=== PATIENT | male | born 1965 | race Caucasian/White ===

== ENCOUNTER 2024-10-20 22:51 | Emergency (ER) | payer BC, SELFPAY ==
[2024-10-20 22:58] VITALS: BP 164/90
[2024-10-20 23:38] VITALS: BP 149/89
[2024-10-20 23:42] VITALS: BP 158/96
[2024-10-21] VITALS: BP 131/89
[2024-10-21 00:01] VITALS: BMI 28.9
[2024-10-21 00:05] LABS: % Basophils 0.5 % (0-2); % Eosinophils 2.6 % (0-6); % Immature Granulocytes 0.2 % (0-0.5); % Lymphocytes 39.8 % (20.5-51.1); % Monocytes 8.2 % (1.7-9.3); % Neutrophils 48.7 % (42.2-75.2); Absolute Eosinophils 0.2 10^3/uL (0-0.7); Absolute Lymphocytes 2.6 10^3/uL (1.2-3.4); Absolute Monocytes 0.5 10^3/uL (0.1-0.6); Absolute Neutrophils 3.2 10^3/uL (1.4-6.5); Hematocrit 39.7 % (39.0-52.0); Hemoglobin 13.2 g/dL (13.0-18.0); Mean Corp Hgb Conc. 33.2 g/dL (33.0-37.0); Mean Corpuscular Hgb 29.3 pg (27.0-31.0); Mean Platelet Volume 10.4 fL (7.4-10.4); Nucleated Red Blood Cells % 0 % (-); Platelet Count 198 10^3/uL (130-400); Red Blood Cell Count 4.51 10^6/uL (4.70-6.10); Red Cell Dist. Width 12.7 % (11.5-14.5); White Blood Cell Count 6.6 10^3/uL (4.8-10.8)
[2024-10-21 00:13] LABS: INR 0.91; PT 12.8 Sec (11.4-14.6)
[2024-10-21 00:14] LABS: ALT (SGPT) 29 U/L (0-50); AST (SGOT) 36 U/L (17-59); Albumin 4.2 g/dl (3.5-5.0); Alkaline Phosphatase 80 U/L (38-126); Blood Urea Nitrogen 18 mg/dl (9-20); Calcium 9.3 mg/dl (8.4-10.2); Carbon Dioxide 30 mmol/L (22-30); Chloride 101 mmol/L (98-107); Estimated Creatinine Clearance 95 ml/min; Glucose 100 mg/dl (70-99); Sodium 137 mmol/L (135-145); Total Bilirubin 0.3 mg/dl (0.2-1.3); Total Protein 6.3 g/dl (6.3-8.2); eGFR > 60.00
[2024-10-21 00:35] LABS: Troponin I < 0.012 ng/ml
[2024-10-21 01:00] VITALS: BP 125/81
--- NOTE | 2024-10-21 01:01 | ED.GENMED ---
History of Present Illness
General
Chief Complaint: Chest Pain
Source: patient and family
Exam Limitations: none
Time Seen by Provider: 10/20/24 23:32
Nursing documentation reviewed up to this point in time: agreed with
History of Present Illness
History of Present Illness:
This is a pleasant 59-year-old male who presents with substernal chest pain that awakened him from sleep around 10 PM. Patient states that he has been having intermittent chest pain for the last 2 to 3 days. Similar location and severity. Tonight
he became concerned because the chest pain radiated down his left arm. He did report some shortness of breath. He states that when the pain is not present he does have pain between his shoulder blades that lingers. Denies fever, chills, nausea or
vomiting. States that he does not have a cardiac history though he was evaluated by a receiving coordinator years ago after having an episode of chest pain in the emergency department. He does report that his brother of 'an enlarged heart '18 years
ago. His sister also had a cardiac ablation. His mom had an OH. Patient is a non-smoker. He does not take any medications.
Review of Systems
Review of Systems
Allergies reviewed?: Yes
All Other Systems: Not applicable
Constitutional: Reports no symptoms
EENT: Reports no symptoms
Respiratory: Reports no symptoms
Cardiac: Reports chest pain
ABD/GI: Reports no symptoms
: Reports no symptoms
Musculoskeletal: Reports no symptoms
Skin: Reports no symptoms
Neurological: Reports no symptoms
Endocrine: Reports no symptoms
Hematologic/Lymphatic: Reports no symptoms
Psychiatric: Reports no symptoms
Phy Exam
General Physical Exam
General Presentation: well appearing and no apparent distress
General Skin: warm and dry
General Habitus: normal
General Mental: alert
General Hydration: appears well hydrated
ENT Exam
ENT Exam: EOMI, pharynx normal, neck supple and normocephalic
Eye Exam
Eye Exam: PERRL, cornea clear and conjunctiva normal
Cardiovascular Exam
Cardiovascular Exam: regular rate/rhythm, no edema, no murmur and normal peripheral pulses
Pulmonary Exam
Pulmonary Exam: lungs clear, no respiratory distress, no rales, no crackles, no rhonchi, no stridor, no wheezing and no cough
Gastrointestinal Exam
Gastrointestinal Exam: normal bowel sounds, non tender, soft, no organomegaly, no pulsatile mass and non distended
Neurological Exam
Neurological Exam: alert, oriented x3, no motor deficits and speech normal
Musculoskeletal Exam
Musculoskeletal Exam: full ROM and no edema
Skin Exam
Skin Exam: normal color, warm/dry, no rash and no petechia
Psychiatric Exam
Psychiatric Exam: normal mood/affect
Scores
Heart Score for Chest Pain Patients
STEMI patient?: No
History: Slightly or Non-Suspicious
ECG: Normal
Age: >45 - <65 years
Risk Factors: 1 or 2 Risk Factors
Troponin: </= Normal Limit
Heart Score for Chest Pain Patients: 2
Heart Score Risk: 2.5% MACE over next 6 weeks
Course
Orders/Labs/Results
Orders:
Orders
10/20/24 22:51
Electrocardiogram (*1) Urgent
Reason for Study: Chest Pain
10/20/24 22:52
EKG- Treatment ONCE
10/20/24 23:55
Complete Blood Count/With Diff Urgent
Comprehensive Metabolic Panel Urgent
Prothrombin Time Urgent
Troponin I Urgent
10/21/24 00:01
CT Chest Pe Study Urgent
Reason For Exam: cp rad thru shoulders, dyspnea
10/21/24 01:55
Pantoprazole [Protonix] 40 mg PO NOW STA
Abnormal Lab Results
10/20/24
23:55
RBC 4.51 L 10^6/uL
(4.70-6.10)
Glucose 100 H mg/dl
(70-99)
10/20/24 23:55
10/20/24 23:55
Vital Signs
Initial and Last Documented VS:
Initial Vital Signs
Temp Pulse Resp BP Pulse Ox
97.3 F 66 18 164/90 99
10/20/24 22:58 10/20/24 22:58 10/20/24 22:58 10/20/24 22:58 10/20/24 22:58
Last Documented Vital Signs
Temp Pulse Resp BP Pulse Ox
97.3 F 64 16 125/81 95
10/20/24 22:58 10/21/24 01:00 10/21/24 01:00 10/21/24 01:00 10/21/24 01:00
*Critical Care Note
Total Time (30-74mins, 75-104mins- exclusive of procedures): Not Applicable
Update Note
Update Note:
CTA CHEST
IMPRESSION:
1. Adequate technical study. No acute pulmonary embolism.
2. No thoracic aortic aneurysm or acute aortic dissection. Bibasilar atelectasis. Mild esophageal wall thickening, can be correlated with signs or symptoms of esophagitis
Incidentals:
- No acute osseous abnormality.
- No acute abnormality within the visualized abdomen.
- No thoracic lymphadenopathy or suspicious lymph nodes.
Case finalized on Oct 21 2024 1:32AM ET
Cardiac enzyme negative. CT negative. Chest pain has been going on for several days. First troponin negative. Patient to follow-up with family doctor.
ED Attending Note
-
Portions of this chart may have been created with voice recognition software.� Occasional wrong word or��sound alike� substitutions may have occurred due to the inherent limitations of voice recognition software.
Discharge Plan
Departure
Patient Disposition: Home (Routine Discharge)
Date of Disposition: 10/21/24
Time of Disposition: 01:56
Patient with high blood pressure during this ER visit?: Yes
Condition: Good
Discharge Problem:
Chest pain, Esophagitis
Instructions: Acid Reflux and GERD in Adults (DC), Chest Pain PCP Follow Up
Prescriptions:
New
pantoprazole [Protonix] 40 mg tablet,delayed release (DR/EC)
40 mg PO DAILY Qty: 14 0RF
Referrals:
George Stoll MD [Family Provider] -
Activity Restrictions/Additional Instructions:
Your prescriptions were sent electronically to the pharmacy that you specified.
It was a pleasure meeting you and taking part in your care. We hope for your continued healing and wellness.
Please read discharge instructions in their entirety. However, they are for general education and may not describe your exact diagnosis at discharge. Information on your ER visit and medical conditions were discussed with you along with appropriate
follow up information...
If indicated, please take your medications as instructed and indicated on discharge paperwork.
Please schedule a follow up appointment as directed. Call to schedule an appointment
Please return to the emergency department with ANY change in, persisting, or worsening of symptoms. If any of your symptoms do not improve, or persist, or become more severe within 6-12 hours, please return to the emergency department for further
care.
Please return to the emergency department if you develop a headache, neck pain/stiffness, fever greater than 100.4F, chest pain, shortness of breath, persistent nausea, vomiting, slurred speech, difficulty walking, numbness/tingling, weakness, signs
of infection or any other symptoms that are worrisome to you.
If you have any questions or concerns please do not hesitate to call the Hospital at or E-mail me directly at [email or web address]
Interventions
Interventions:
*Risk Screen - Suicide Last Done: 10/20/24 22:58
*General Assessment Last Done: 10/21/24 00:01
*Neglect/Abuse Screening Last Done: 10/20/24 22:58
ED- Fall Risk Assessment Last Done: 10/21/24 00:01
*ED COVID-19 Vaccine History Last Done: 10/21/24 00:01
*Nursing Disposition Last Done: 10/21/24 02:33
ED- Cardiac Assessment Last Done: 10/21/24 00:01
Discharge Date and Time
Discharge Date/Time: 10/21/24 02:34
Print Language: HUNGARIAN
[2024-10-21] MEDS: PROTONIX 40 MG PO (02:22)
== END 2024-10-21 02:34 | disposition home or self-care (01) ==
LOC: EMR 22:51
PROVIDERS: EMERGENCY PHYSICIAN Student in an Organized Health Care Education/Training Program; FAMILY PHYSICIAN Family Medicine
DX: K20.90 Esophagitis, unspecified without bleeding (principal); R07.89 Other chest pain; R03.0 Elevated blood-pressure reading, without diagnosis of hypertension
CPT/HCPCS: 99285; 71275; 80053; 84484; 85025; 85610; 93005; Q9967

== ENCOUNTER 2024-11-05 06:30 | Emergency (ER) | payer BC, SELFPAY ==
[2024-11-05 06:32] VITALS: BP 154/80
--- NOTE | 2024-11-05 07:07 | ED.GENMED ---
History of Present Illness
General
Chief Complaint: Breathing Problem
Source: patient
Exam Limitations: none
Time Seen by Provider: 11/05/24 07:07
Nursing documentation reviewed up to this point in time: agreed with
History of Present Illness
History of Present Illness:
59 yo male w no significant pmhx states he went to [employer] days ago, came home, 'my sinuses plugged up immediately,' 'I can't take a deep breath,' 'my lower back hurts,' also getting intermittent hot sweats. Can't sleep. Took Tylenol 1000 mg
4:30 a.m.
Denies n/v/d. Denies CP
Past History
Past History
ED Past Medical History: None
ED Past Surgical History: None
Social History
Tobacco: Non-smoker
Alcohol: Occasional
Personal:
Living: with family
Employment: Employed (installs elevators)
Review of Systems
Review of Systems
Allergies reviewed?: Yes
All Other Systems: ROS reviewed and negative except as documented in HPI and ROS
Constitutional: Denies fever
EENT: Reports other (sinus stuffiness); Denies sore throat
Respiratory: Reports trouble breathing; Denies cough
Cardiac: Denies chest pain
ABD/GI: Denies abdominal pain, nausea, vomiting or diarrhea
Musculoskeletal: Reports no symptoms
Skin: Reports no symptoms
Phy Exam
Physical Exam
Physical Exam:
GENERAL: No acute distress. A&Ox3.
CONSTITUTIONAL: Afebrile.
EYES: clear, conjunctivae normal
ENMT: moist mucus membranes, Pharynx nl, significant nasal stuffiness, all clear drainage, boggy turbinates, TMS normal
RESPIRATORY: Regular respirations, nonlabored, lungs clear.
CARDIOVASCULAR: Regular rate and rhythm, no murmurs, no rubs.
GI: Soft, nontender, normal BS
MUSCULOSKELETAL: Moves with ease. Well perfused.
SKIN: Warm, dry, pink
PSYCH: Normal mood and affect. Well kept, interactive and appropriate
NEUROLOGIC: Awake, alert and oriented. No focal neurological deficits
Scores
Heart Failure Risk
Heart Failure Risk Score: Not Applicable
Course
Orders/Labs/Results
Orders:
Orders
11/05/24 07:13
CR Chest - 2 Views Urgent
Comment:
Reason For Exam: nasal congestion, difficulty breathing
11/05/24 07:27
COVID-19 Antigen Urgent
Source: Nasal Swab
Influenza A+B Rapid Molecular Urgent
JANAK Source: Nasal Swab
Specimen Description:
11/05/24 09:36
Ipratropium/Albuterol Sulfate [Duoneb] 3 ml INH R NOW STA
11/05/24 10:10
Azithromycin [Zithromax] 500 mg PO NOW STA
Vital Signs
Initial and Last Documented VS:
Initial Vital Signs
Temp Pulse Resp BP Pulse Ox
97.9 F 70 22 154/80 100
11/05/24 06:32 11/05/24 06:32 11/05/24 06:32 11/05/24 06:32 11/05/24 06:32
Last Documented Vital Signs
Temp Pulse Resp BP Pulse Ox
97.9 F 70 20 150/80 100
11/05/24 06:32 11/05/24 10:20 11/05/24 10:20 11/05/24 10:20 11/05/24 10:20
MDM/Problems Addressed
Differential Diagnosis Includes:
Covid, Flu, PNA
MDM/Problems Addressed:
59 yo male w no significant pmhx states he went to [employer] days ago, came home, 'my sinuses plugged up immediately,' 'I can't take a deep breath,' 'my lower back hurts,' also getting intermittent hot sweats. Can't sleep. Took Tylenol 1000 mg
4:30 a.m.
Denies n/v/d. Denies CP
Afebrile, NAD, significant sinus/nasal stuffiness
COVID-negative
Flu A and B are negative
Chest x-ray: initially read by this examiner: NAD
Rx for Zpack and Albuterol inhaler sent to pt pharmacy. Treating for atypical PNA, pertussis.
*Critical Care Note
Total Time (30-74mins, 75-104mins- exclusive of procedures): Not Applicable
ED Attending Note
-
Portions of this chart may have been created with voice recognition software.� Occasional wrong word or��sound alike� substitutions may have occurred due to the inherent limitations of voice recognition software.
Discharge Plan
Departure
Patient Disposition: Home (Routine Discharge)
Date of Disposition: 11/05/24
Time of Disposition: 10:06
Patient with high blood pressure during this ER visit?: No
Condition: Good
Discharge Problem:
Acute bronchitis
Instructions: Acute Bronchitis, Adult (DC)
Prescriptions:
New
albuterol sulfate 90 mcg/actuation HFA aerosol inhaler
2 puff inhalation Q6H PRN (Reason: shortness of breath or wheezing) Qty: 6.7 0RF
azithromycin 250 mg tablet
250 mg PO DAILY 4 Days Qty: 4 0RF
No Action
pantoprazole [Protonix] 40 mg tablet,delayed release (DR/EC)
40 mg PO DAILY Qty: 14 0RF
Referrals:
George Stoll MD [Family Provider] - As needed
Activity Restrictions/Additional Instructions:
As we discussed, your chest x-ray is normal
I sent a prescription to your pharmacy for the antibiotic azithromycin, we use this for bronchitis
I also sent a prescription for an albuterol inhaler to use if you feel that you are having trouble breathing or wheezing
Interventions
Interventions:
*Risk Screen - Suicide Last Done: 11/05/24 06:31
*General Assessment Last Done: 11/05/24 07:24
*Neglect/Abuse Screening Last Done: 11/05/24 06:31
ED- Fall Risk Assessment Last Done: 11/05/24 07:24
*ED COVID-19 Vaccine History Last Done: 11/05/24 07:24
*Nursing Disposition Last Done: 11/05/24 10:20
ED- Cardiac Assessment Last Done: 11/05/24 07:24
ED- Pulmonary Assessment Last Done: 11/05/24 07:24
Discharge Date and Time
Discharge Date/Time: 11/05/24 10:21
Print Language: SWEDISH
[2024-11-05 08:01] LABS: COVID-19 Antigen Negative (Negative)
[2024-11-05] MEDS: DUONEB 3 ML INH (09:39)
[2024-11-05] MEDS: ZITHROMAX 500 MG PO (10:17)
[2024-11-05 10:20] VITALS: BP 150/80
== END 2024-11-05 10:21 | disposition home or self-care (01) ==
LOC: EMR 06:30
PROVIDERS: Registered Nurse; EMERGENCY PHYSICIAN Emergency Medicine; FAMILY PHYSICIAN Family Medicine
DX: J20.9 Acute bronchitis, unspecified (principal)
CPT/HCPCS: 99283; 94640; 71046; 87502; 87811

== ENCOUNTER → 2024-11-29 07:35 | Outpatient (REF) | payer BC, SELFPAY ==
[2024-11-29 08:35] LABS: ALT (SGPT) 36 U/L (0-50); AST (SGOT) 38 U/L (17-59); Albumin 4.5 g/dl (3.5-5.0); Alkaline Phosphatase 70 U/L (38-126); Blood Urea Nitrogen 19 mg/dl (9-20); Calcium 9.6 mg/dl (8.4-10.2); Carbon Dioxide 32 mmol/L (22-30); Chloride 102 mmol/L (98-107); Glucose 93 mg/dl (70-99); HDL Cholesterol 43 mg/dl; LDL Cholesterol, Calculated 108 mg/dl; Potassium 4.7 mmol/L (3.5-5.1); Sodium 141 mmol/L (135-145); Total Bilirubin 0.5 mg/dl (0.2-1.3); Total Cholesterol 178 mg/dl (50-199); Total Protein 7.1 g/dl (6.3-8.2); Triglyceride 139 mg/dl (10-149); Very Low Density Lipoprotein 27 mg/dl (0-30); eGFR > 60.00
[2024-11-29 09:06] LABS: PSA, Total - Screen 3.32 ng/ml (0.0-4.0)
== END ==
LOC: REG 07:35
PROVIDERS: ATTENDING PHYSICIAN Family Medicine
DX: E78.1 Pure hyperglyceridemia (principal); Z13.228 Encounter for screening for other metabolic disorders; Z12.5 Encounter for screening for malignant neoplasm of prostate
CPT/HCPCS: 36415; 80053; 80061; G0103

== ENCOUNTER → 2024-12-06 15:34 | Outpatient (REF) | payer BC, SELFPAY | LOC: RCS 15:34 | PROVIDERS: ATTENDING PHYSICIAN Nurse Practitioner Family; FAMILY PHYSICIAN Family Medicine | DX: R07.89 Other chest pain (principal) | CPT/HCPCS: 93005; 93306 ==